=== PATIENT | female | born 1965 | race Two or more races ===

== ENCOUNTER 2020-07-03 14:27 | Emergency (ER) | payer OTHER ==
[2020-07-03 15:11] LABS: ANION GAP 14.9 mEq/L (7-13); CHLORIDE,CL 103 mmol/L (98-107); SODIUM,NA 142 mmol/L (136-145)
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
--- NOTE | 2020-07-03 15:35 | CR ---
EXAMINATION: Knee 2V Rt SEX: Female AGE: 54 years CLINICAL HISTORY: 54-year-old female crush injury right knee. INTERPRETATION: Negative exam. 1. Homogeneous normal bone mineral density for age and gender. 2. Symmetric normal knee joint spacing. 3. No suprapatellar bursal effusion. 4. No sign of right knee fracture, dislocation or radiopaque loose joint body. 5. No foreign bodies.
--- NOTE | 2020-07-03 15:37 | CR ---
EXAMINATION: Foot Comp Min 3V Rt SEX: Female AGE: 54 years CLINICAL HISTORY: 54-year-old female crush injury right foot. INTERPRETATION: Negative exam. 1. Homogeneous normal bone mineral density for age and gender. 2. No sign of right foot fracture or dislocation. 3. No foreign bodies. 4. No heel spurs are other arthritic degenerative change.
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
[2020-07-03] MEDS ORDERED: fentaNYL 100 MCG/2 ML SDV IM ONE (16:16)
[2020-07-03] MEDS ORDERED: fentaNYL 100 MCG/2 ML SDV IVPUSH ONE (16:26)
== END 2020-07-03 16:39 | disposition home or self-care (01) ==
LOC: DL.ED 14:27
DX: S80.12XA Contusion of left lower leg, initial encounter (principal); S80.11XA Contusion of right lower leg, initial encounter; S90.511A Abrasion, right ankle, initial encounter; S70.312A Abrasion, left thigh, initial encounter; W23.0XXA Caught, crushed, jammed, or pinched between moving objects, initial encounter; Y99.0 Civilian activity done for income or pay
CPT/HCPCS: 36415; 73560-RT; 73590-RT; 73610-RT; 73630-RT; 80053; 82550; 85025; 96374; 99283; 99284-25; J3010